=== PATIENT | male | born 1945 | race Caucasian/White ===

== ENCOUNTER 2023-01-19 10:34 | Inpatient (IN) | payer MEDICAID, OTHER ==
[2023-01-19] VITALS (26 sets, daily range): BP systolic 100–150; BP diastolic 60–85
[~2023-01-19] VITALS: Ht 167.6 cm; Wt 81.2 kg
[2023-01-19] MEDS ORDERED: OMEP40CA20 PO (10:37)
[2023-01-19] MEDS ORDERED: LACTATED RINGERS 1,000 ML IV SCH (11:30)
[2023-01-19] MEDS ORDERED: LIDOCAINE HCL/EPINEPHRINE 1%-EPI 1:100,000 30 ML VIAL INFIL ONE (12:10)
[2023-01-19] MEDS ORDERED: THROMBIN (BOVINE) 5000 UNITS/VIAL TOP ONE (12:10)
[2023-01-19] MEDS ORDERED: GENTAMICIN SULF 40MG/ML 2ML VIAL ONE (12:10)
[2023-01-19] MEDS ORDERED: PROPOFOL 200MG/20ML VIAL IV ONE ×2 (12:26→13:33)
[2023-01-19] MEDS ORDERED: MIDAZOLAM HCL 2 MG/2 ML VIAL ONE (12:26)
[2023-01-19] MEDS ORDERED: FENTANYL CITRATE/PF 50MCG/ML 2ML VIAL ONE ×2 (12:26→13:14)
[2023-01-19] MEDS ORDERED: CEFAZOLIN SODIUM 1000MG/VIAL ONE (12:27)
[2023-01-19] MEDS ORDERED: SUCCINYLCHOLINE CHLORIDE 200MG/10ML IV ONE (12:27)
[2023-01-19] MEDS ORDERED: NEOSTIGMINE METHYLSULFATE 1MG/ML 10 ML VIAL ONE (12:27)
[2023-01-19] MEDS ORDERED: DEXAMETHASONE 4MG/ML 1ML VIAL ONE (12:27)
[2023-01-19] MEDS ORDERED: GLYCOPYRROLATE 0.2 MG/ML 2ML VIAL ONE ×2 (12:27)
[2023-01-19] MEDS ORDERED: ROCURONIUM BROMIDE 10MG/ML VIAL 5ML IV ONE ×2 (12:27→14:24)
[2023-01-19] MEDS ORDERED: ONDANSETRON HCL 4MG/2ML INJ ONE (12:27)
[2023-01-19] MEDS ORDERED: LIDOCAINE HCL 1% 10 MG/ML 10ML VIAL ONE (12:28)
[2023-01-19] MEDS ORDERED: ATOR40TA70 PO (13:45)
[2023-01-19] MEDS ORDERED: TAMS-11 PO (13:45)
[2023-01-19] MEDS ORDERED: LOSA1TAB34 PO (13:45)
[2023-01-19] MEDS ORDERED: CHOL2000 PO (13:45)
[2023-01-19] MEDS ORDERED: GABA-529 PO (13:45)
[2023-01-19] MEDS ORDERED: CEFAZOLIN SODIUM 1000MG/VIAL IV SCH (14:00)
[2023-01-19] MEDS ORDERED: NALOXONE HCL 0.4MG/ML VIAL IV PRN (15:30)
[2023-01-19] MEDS: DEXT 5%/LACTATED RINGERS 1,000 ML IV SCH (16:29)
[2023-01-19] MEDS ORDERED: NICARDIPINE 100 MG in SODIUM CHLORIDE 0.9% 60 ML IV PRN (16:30)
[2023-01-19] MEDS: MORPHINE SULFATE 4 MG/ML CPJ (NOT FOR IM USE) IV PRN ×2 (16:36→19:39)
[2023-01-19] MEDS: CEFAZOLIN 1000MG PREMIX 50 ML IV SCH (17:22)
[2023-01-19] MEDS: DEXAMETHASONE 4MG/ML 1ML VIAL IV SCH (17:23)
[2023-01-20] VITALS (51 sets, daily range): BP systolic 107–160; BP diastolic 58–119
[2023-01-20] MEDS: DEXAMETHASONE 4MG/ML 1ML VIAL IV SCH ×4 (00:12→17:01)
[2023-01-20] MEDS: DEXT 5%/LACTATED RINGERS 1,000 ML IV SCH ×3 (00:12→21:15)
[2023-01-20] MEDS: CEFAZOLIN 1000MG PREMIX 50 ML IV SCH ×3 (00:12→16:59)
[2023-01-20] MEDS: MORPHINE SULFATE 4 MG/ML CPJ (NOT FOR IM USE) IV PRN ×4 (01:41→16:01)
[2023-01-20 04:55] LABS: BASOPHILS % 0.4 % (0.0-2.0); EOSINOPHILS % 0.1 % (0.0-5.0); HEMATOCRIT. 37.7 % (42.0-52.0); HEMOGLOBIN. 12.8 g/dL (14.0-18.0); LYMPHOCYTES % 8.8 % (20.0-50.0); MEAN CORPUSCULAR HEMOGLOBIN 29.9 pg (28.0-32.0); MEAN CORPUSCULAR VOLUME 87.9 fL (80.0-94.0); MEAN PLATELET VOLUME 10.7 fl (7.4-10.4); MONOCYTES % 2.8 % (2.0-8.0); NEUTROPHILS % 87.9 % (40.0-76.0); PLATELET 154 x1000/uL (130-400); RED BLOOD CELL COUNT 4.28 mill/uL (4.7-6.1); RED CELL DISTRIBUTION WIDTH 14.6 % (11.6-14.6)
[2023-01-20 05:07] LABS: CHLORIDE 109 mEq/L (98-107)
[2023-01-20] MEDS: LOSARTAN POTASSIUM 50 MG TABLET PO SCH (12:17)
[2023-01-20] MEDS: GABAPENTIN 100MG CAPSULE PO SCH ×2 (12:17→16:59)
[2023-01-20] MEDS: TAMSULOSIN HCL 0.4MG SR CAPSULE PO SCH (12:17)
[2023-01-20] MEDS: FAMOTIDINE 20MG TABLET PO SCH (12:18)
[2023-01-20] MEDS: ATORVASTATIN CALCIUM 40MG TABLET PO SCH (21:13)
[2023-01-20] MEDS ORDERED: DEXTROSE 50% WATER 50ML SYRINGE IV PRN (23:00)
[2023-01-21] VITALS (29 sets, daily range): BP systolic 105–140; BP diastolic 61–85
[2023-01-21] MEDS: CEFAZOLIN 1000MG PREMIX 50 ML IV SCH ×3 (00:18→16:53)
[2023-01-21] MEDS: DEXT 5%/LACTATED RINGERS 1,000 ML IV SCH ×2 (05:31→16:53)
[2023-01-21] MEDS: BLOOD SUGAR DIAGNOSTIC STRIP TEST SCH ×4 (05:57→20:44)
[2023-01-21] MEDS ORDERED: BLOOD SUGAR DIAGNOSTIC STRIP TEST SCH (06:30)
[2023-01-21] MEDS: INSULIN LISPRO 100 UNITS/ML SUBCUT SCH ×4 (06:40→20:44)
[2023-01-21] MEDS: LOSARTAN POTASSIUM 50 MG TABLET PO SCH (08:52)
[2023-01-21] MEDS: TAMSULOSIN HCL 0.4MG SR CAPSULE PO SCH (08:53)
[2023-01-21] MEDS: FAMOTIDINE 20MG TABLET PO SCH (08:53)
[2023-01-21] MEDS: GABAPENTIN 100MG CAPSULE PO SCH ×3 (08:53→16:53)
[2023-01-21] MEDS: MORPHINE SULFATE 4 MG/ML CPJ (NOT FOR IM USE) IV PRN ×2 (11:28→22:08)
[2023-01-21] MEDS: ATORVASTATIN CALCIUM 40MG TABLET PO SCH (21:54)
[2023-01-22] VITALS: BP 115/66
[2023-01-22 04:00] VITALS: BP 128/72
[2023-01-22] MEDS: DEXT 5%/LACTATED RINGERS 1,000 ML IV SCH ×3 (05:56→23:01)
[2023-01-22] MEDS: BLOOD SUGAR DIAGNOSTIC STRIP TEST SCH ×4 (06:40→20:26)
[2023-01-22] MEDS: INSULIN LISPRO 100 UNITS/ML SUBCUT SCH ×4 (06:40→21:00)
[2023-01-22 08:00] VITALS: BP 136/78
[2023-01-22] MEDS: FAMOTIDINE 20MG TABLET PO SCH (08:30)
[2023-01-22] MEDS: TAMSULOSIN HCL 0.4MG SR CAPSULE PO SCH (08:31)
[2023-01-22] MEDS: LOSARTAN POTASSIUM 50 MG TABLET PO SCH (08:31)
[2023-01-22] MEDS: GABAPENTIN 100MG CAPSULE PO SCH ×3 (08:33→16:18)
[2023-01-22] MEDS ORDERED: LACTULOSE 20G/30ML UDC PO PRN (10:00)
[2023-01-22 15:48] VITALS: BP 132/66
[2023-01-22] MEDS: POLYETHYLENE GLYCOL 3350 (17GM) 1 DOSE PACK PO SCH (18:34)
[2023-01-22 20:00] VITALS: BP 131/86
[2023-01-22] MEDS: ATORVASTATIN CALCIUM 40MG TABLET PO SCH (20:27)
[2023-01-23] VITALS: BP 136/74
[2023-01-23 04:00] VITALS: BP 121/73
[2023-01-23] MEDS: BLOOD SUGAR DIAGNOSTIC STRIP TEST SCH ×4 (07:04→21:49)
[2023-01-23] MEDS: INSULIN LISPRO 100 UNITS/ML SUBCUT SCH ×2 (07:30→11:52)
[2023-01-23 08:00] VITALS: BP 143/77
[2023-01-23] MEDS: POLYETHYLENE GLYCOL 3350 (17GM) 1 DOSE PACK PO SCH (08:36)
[2023-01-23] MEDS: FAMOTIDINE 20MG TABLET PO SCH (08:36)
[2023-01-23] MEDS: TAMSULOSIN HCL 0.4MG SR CAPSULE PO SCH (08:36)
[2023-01-23] MEDS: GABAPENTIN 100MG CAPSULE PO SCH ×3 (08:36→17:48)
[2023-01-23] MEDS: LOSARTAN POTASSIUM 50 MG TABLET PO SCH (08:36)
[2023-01-23] MEDS: DEXT 5%/LACTATED RINGERS 1,000 ML IV SCH (11:52)
[2023-01-23 12:00] VITALS: BP 164/82
[2023-01-23 16:00] VITALS: BP 159/80
[2023-01-23 20:00] VITALS: BP 139/79
[2023-01-23] MEDS: MORPHINE SULFATE 4 MG/ML CPJ (NOT FOR IM USE) IV PRN (21:45)
[2023-01-23] MEDS: ATORVASTATIN CALCIUM 40MG TABLET PO SCH (21:49)
[2023-01-24] VITALS: BP 126/69
[2023-01-24 04:00] VITALS: BP 119/72
[2023-01-24] MEDS: BLOOD SUGAR DIAGNOSTIC STRIP TEST SCH ×4 (06:52→21:00)
[2023-01-24 08:05] VITALS: BP 117/67
[2023-01-24] MEDS: LOSARTAN POTASSIUM 50 MG TABLET PO SCH (09:05)
[2023-01-24] MEDS: POLYETHYLENE GLYCOL 3350 (17GM) 1 DOSE PACK PO SCH (09:05)
[2023-01-24] MEDS: FAMOTIDINE 20MG TABLET PO SCH (09:05)
[2023-01-24] MEDS: TAMSULOSIN HCL 0.4MG SR CAPSULE PO SCH (09:05)
[2023-01-24] MEDS: GABAPENTIN 100MG CAPSULE PO SCH ×3 (09:05→17:48)
[2023-01-24 12:00] VITALS: BP 113/64
[2023-01-24 15:59] VITALS: BP 115/85
[2023-01-24 20:00] VITALS: BP 122/74
[2023-01-24] MEDS: ATORVASTATIN CALCIUM 40MG TABLET PO SCH (22:58)
[2023-01-24] MEDS: MORPHINE SULFATE 2 MG/ML CPJ (NOT FOR IM USE) IV PRN (22:59)
[2023-01-25] VITALS: BP 112/71
[2023-01-25 04:00] VITALS: BP 112/73
[2023-01-25] MEDS: BLOOD SUGAR DIAGNOSTIC STRIP TEST SCH ×4 (06:37→21:00)
[2023-01-25 08:00] VITALS: BP 120/73
[2023-01-25] MEDS: GABAPENTIN 100MG CAPSULE PO SCH ×3 (08:55→19:30)
[2023-01-25] MEDS: FAMOTIDINE 20MG TABLET PO SCH (08:55)
[2023-01-25] MEDS: POLYETHYLENE GLYCOL 3350 (17GM) 1 DOSE PACK PO SCH (08:55)
[2023-01-25] MEDS: LOSARTAN POTASSIUM 50 MG TABLET PO SCH (08:55)
[2023-01-25] MEDS: TAMSULOSIN HCL 0.4MG SR CAPSULE PO SCH (08:56)
[2023-01-25] MEDS: MORPHINE SULFATE 2 MG/ML CPJ (NOT FOR IM USE) IV PRN ×2 (08:58→19:30)
[2023-01-25 12:00] VITALS: BP 118/50
[2023-01-25 16:00] VITALS: BP 116/50
[2023-01-25] MEDS ORDERED: NALOXONE HCL 0.4MG/ML VIAL IV PRN (17:30)
[2023-01-25 20:00] VITALS: BP 113/78
[2023-01-25] MEDS: ATORVASTATIN CALCIUM 40MG TABLET PO SCH (22:50)
[2023-01-26] VITALS: BP 111/65
[2023-01-26 04:00] VITALS: BP 111/64
[2023-01-26] MEDS: BLOOD SUGAR DIAGNOSTIC STRIP TEST SCH ×4 (06:54→21:00)
[2023-01-26 08:00] VITALS: BP 125/77
[2023-01-26] MEDS: POLYETHYLENE GLYCOL 3350 (17GM) 1 DOSE PACK PO SCH (09:39)
[2023-01-26] MEDS: LOSARTAN POTASSIUM 50 MG TABLET PO SCH (09:40)
[2023-01-26] MEDS: TAMSULOSIN HCL 0.4MG SR CAPSULE PO SCH (09:40)
[2023-01-26] MEDS: GABAPENTIN 100MG CAPSULE PO SCH ×3 (09:40→18:40)
[2023-01-26] MEDS: FAMOTIDINE 20MG TABLET PO SCH (09:40)
[2023-01-26] MEDS: MORPHINE SULFATE 2 MG/ML CPJ (NOT FOR IM USE) IV PRN (09:47)
[2023-01-26 12:00] VITALS: BP 118/79
[2023-01-26] MEDS ORDERED: BISACODYL 10MG SUPP PR SCH (12:30)
[2023-01-26] MEDS: LACTULOSE 20G/30ML UDC PO SCH ×3 (13:00→21:00)
[2023-01-26 20:00] VITALS: BP 118/64
[2023-01-26] MEDS: ATORVASTATIN CALCIUM 40MG TABLET PO SCH (22:13)
[2023-01-27] VITALS: BP 129/78
[2023-01-27 04:00] VITALS: BP 126/68
[2023-01-27] MEDS: BLOOD SUGAR DIAGNOSTIC STRIP TEST SCH ×4 (07:40→21:00)
[2023-01-27 08:00] VITALS: BP 105/64
[2023-01-27] MEDS: GABAPENTIN 100MG CAPSULE PO SCH ×3 (08:54→18:34)
[2023-01-27] MEDS: POLYETHYLENE GLYCOL 3350 (17GM) 1 DOSE PACK PO SCH (08:54)
[2023-01-27] MEDS: FAMOTIDINE 20MG TABLET PO SCH (08:54)
[2023-01-27] MEDS: LOSARTAN POTASSIUM 50 MG TABLET PO SCH (08:54)
[2023-01-27] MEDS: TAMSULOSIN HCL 0.4MG SR CAPSULE PO SCH (08:54)
[2023-01-27] MEDS: MORPHINE SULFATE 2 MG/ML CPJ (NOT FOR IM USE) IV PRN ×2 (08:55→14:41)
[2023-01-27 12:00] VITALS: BP 134/75
[2023-01-27 16:00] VITALS: BP 123/80
[2023-01-27 20:22] VITALS: BP 129/81
[2023-01-27] MEDS: ATORVASTATIN CALCIUM 40MG TABLET PO SCH (22:06)
[2023-01-27] MEDS: METOPROLOL TARTRATE 25MG TABLET PO SCH (22:06)
[2023-01-27 22:27] LABS: T4 FREE 1.08 ng/dL (0.76-1.46)
[2023-01-28] VITALS (11 sets, daily range): BP systolic 106–135; BP diastolic 68–78
[2023-01-28] MEDS: BLOOD SUGAR DIAGNOSTIC STRIP TEST SCH ×4 (06:27→20:25)
[2023-01-28 07:49] LABS: BASOPHILS % 0.8 % (0.0-2.0); EOSINOPHILS % 6.9 % (0.0-5.0); HEMATOCRIT. 34.9 % (42.0-52.0); HEMOGLOBIN. 11.7 g/dL (14.0-18.0); LYMPHOCYTES % 28.8 % (20.0-50.0); MEAN CORPUSCULAR HEMOGLOBIN 29.4 pg (28.0-32.0); MEAN CORPUSCULAR VOLUME 87.7 fL (80.0-94.0); MONOCYTES % 8.9 % (2.0-8.0); NEUTROPHILS % 54.6 % (40.0-76.0); PLATELET 240 x1000/uL (130-400); RED BLOOD CELL COUNT 3.97 mill/uL (4.7-6.1); RED CELL DISTRIBUTION WIDTH 13.7 % (11.6-14.6)
[2023-01-28] MEDS: METOPROLOL TARTRATE 25MG TABLET PO SCH ×2 (08:28→21:14)
[2023-01-28] MEDS: TAMSULOSIN HCL 0.4MG SR CAPSULE PO SCH (08:35)
[2023-01-28] MEDS: POLYETHYLENE GLYCOL 3350 (17GM) 1 DOSE PACK PO SCH (08:35)
[2023-01-28] MEDS: FAMOTIDINE 20MG TABLET PO SCH (08:35)
[2023-01-28] MEDS: GABAPENTIN 100MG CAPSULE PO SCH ×3 (08:35→17:16)
[2023-01-28 08:37] LABS: CHLORIDE 108 mEq/L (98-107)
[2023-01-28 08:45] LABS: HDL CHOLESTEROL 35 mg/dL (40-59); LDL CHOLESTEROL 47 mg/dL (5-100)
[2023-01-28] MEDS: ATORVASTATIN CALCIUM 40MG TABLET PO SCH (21:13)
[2023-01-28] MEDS: MORPHINE SULFATE 2 MG/ML CPJ (NOT FOR IM USE) IV PRN (21:17)
== END 2023-01-28 23:50 | DRG 304 ==
LOC: OR 10:34 → MICUSO 16:27 → 7WST 01-21 18:10
PROVIDERS: ADMIT Internal Medicine; ATTEND Internal Medicine
PROC: 0RG6071 Fusion of Thoracic Vertebral Joint with Autologous Tissue Substitute, Posterior Approach, Posterior Column, Open Approach (ICD-10-PCS; principal; 2023-01-24)
PROC: 0RG4071 Fusion of Cervicothoracic Vertebral Joint with Autologous Tissue Substitute, Posterior Approach, Posterior Column, Open Approach (ICD-10-PCS; 2023-01-24)
PROC: 0RG2071 Fusion of 2 or more Cervical Vertebral Joints with Autologous Tissue Substitute, Posterior Approach, Posterior Column, Open Approach (ICD-10-PCS; 2023-01-24)
PROC: 00NW0ZZ Release Cervical Spinal Cord, Open Approach (ICD-10-PCS; 2023-01-24)
PROC: 00NX0ZZ Release Thoracic Spinal Cord, Open Approach (ICD-10-PCS; 2023-01-24)
PROC: 4A11X4G Monitoring of Peripheral Nervous Electrical Activity, Intraoperative, External Approach (ICD-10-PCS; 2023-01-24)
DX: M48.02 Spinal stenosis, cervical region (principal); G82.50 Quadriplegia, unspecified; I47.20 Ventricular tachycardia, unspecified; G99.2 Myelopathy in diseases classified elsewhere; G95.20 Unspecified cord compression; G82.20 Paraplegia, unspecified; S14.109A Unspecified injury at unspecified level of cervical spinal cord, initial encounter; S13.180A Subluxation of C7/T1 cervical vertebrae, initial encounter; I10 Essential (primary) hypertension; K21.9 Gastro-esophageal reflux disease without esophagitis; N40.0 Benign prostatic hyperplasia without lower urinary tract symptoms; E78.5 Hyperlipidemia, unspecified; E11.42 Type 2 diabetes mellitus with diabetic polyneuropathy; K59.00 Constipation, unspecified; G89.4 Chronic pain syndrome; M47.813 Spondylosis without myelopathy or radiculopathy, cervicothoracic region; M43.13 Spondylolisthesis, cervicothoracic region; L60.0 Ingrowing nail; E11.65 Type 2 diabetes mellitus with hyperglycemia; X58.XXXA Exposure to other specified factors, initial encounter; Z82.49 Family history of ischemic heart disease and other diseases of the circulatory system; Z99.3 Dependence on wheelchair; Z98.1 Arthrodesis status; Y93.89 Activity, other specified; Y92.89 Other specified places as the place of occurrence of the external cause; Y99.8 Other external cause status
CPT/HCPCS: 36415; 71045; 72040; 72141; 76000; 80048; 80061; 82962; 83036; 83735; 84439; 84443; 84480; 84484; 85025; 86850; 86900; 87426; 88304; 88311; 93005; 93306; 93970; 97110; 97116; 97162; 97166; 97530; A6261; C9803; J0330; J0690; J1100; J1580; J1815; J2250; J2270; J2405; J2704; J2710; J3010; J3490; J7121; L0172; C1713